=== PATIENT | female | born 1950 | race Caucasian/White ===

== ENCOUNTER → 2023-04-30 13:40 | Outpatient (BNVA) | payer MEDICARE, SELFPAY | PROVIDERS: PCP Nurse Practitioner Family; Visit Provider Nurse Practitioner Family | DX: E53.8 Deficiency of other specified B group vitamins (principal); I10 Essential (primary) hypertension; E55.9 Vitamin D deficiency, unspecified | CPT/HCPCS: 80053; 80061; 82306; 82607; 84443; 85025 ==

== ENCOUNTER 2023-05-28 14:54 | Outpatient (CLI) | payer MEDICARE, SELFPAY ==
--- NOTE | 2023-05-28 15:00 | US_ITS ---
WS: [id number] DIAGNOSTIC BILATERAL DIGITAL BREAST TOMOSYNTHESIS MAMMOGRAPHY WITH CAD Bilateral breast ultrasound, limited HISTORY: Breast lumps. History of ovarian cancer. COMPARISON: None available. TECHNIQUE: Bilateral craniocaudad, mediolateral oblique, and mediolateral views are submitted with to mosynthesis and SM. Spot compression bilateral CC. Computer aided detection utilized. Breast composition: There are scattered areas of fibroglandular density. High density lobulated mass measuring 2.5 cm posterior 9:00 RIGHT breast. Additional slightly lobulated 1.1 cm mass 12:00 mid dep th. There is an incompletely visualized 4.0 cm mass against the posterior LEFT chest wall. This is a very high density mass. Bilateral breast ultrasound, limited. RIGHT breast: Hypoechoic lobulated soft tissue mass with increased vascularity at 9:00, 6 cm from the nipple. Mass measures 1.7 x 2.3 x 2.0 cm. There is an additional hypoechoic mass at 12:00, 4 cm from the nipple measuring 1.0 x 0.4 x 0.9 cm. LEFT breast: Very large hypoechoic mass with lobulated margins with increased vascularity at 6:00, 10 cm from the nipple. Mass measures 3.7 x 3.1 x 4.5 cm. Normal axillary lymph nodes. IMPRESSION: US/US breast BI limited* [id number] BI-RADS: 5-Highly Suggestive of Malignancy FOLLOW UP: Biopsy Recommended 1. Bilateral suspicious breast masses for neoplasm. With history of ovarian car cinoma these may very well be metastatic sites within each breast. Otherwise bi lateral primary breast neoplasm should be considered. There are no prior studie s for comparison. 2. Ultrasound-guided biopsy can be performed of the largest mass within each br east.
--- NOTE | 2023-05-28 15:05 | MM_ITS ---
WS: [id number] DIAGNOSTIC BILATERAL DIGITAL BREAST TOMOSYNTHESIS MAMMOGRAPHY WITH CAD Bilateral breast ultrasound, limited HISTORY: Breast lumps. History of ovarian cancer. COMPARISON: None available. TECHNIQUE: Bilateral craniocaudad, mediolateral oblique, and mediolateral views are submitted with to mosynthcamille and SM. Spot compression bilateral CC. Computer aided detection utilized. Breast composition: There are scattered areas of fibroglandular density. High density lobulated mass measuring 2.5 cm posterior 9:00 RIGHT breast. Additional slightly lobulated 1.1 cm mass 12:00 mid dep th. There is an incompletely visualized 4.0 cm mass against the posterior LEFT chest wall. This is a very high density mass. Bilateral breast ultrasound, limited. RIGHT breast: Hypoechoic lobulated soft tissue mass with increased vascularity at 9:00, 6 cm from the nipple. Mass measures 1.7 x 2.3 x 2.0 cm. There is an additional hypoechoic mass at 12:00, 4 cm from the nipple measuring 1.0 x 0.4 x 0.9 cm. LEFT breast: Very large hypoechoic mass with lobulated margins with increased vascularity at 6:00, 10 cm from the nipple. Mass measures 3.7 x 3.1 x 4.5 cm. Normal axillary lymph nodes. IMPRESSION: MM/[place] [id number] BI-RADS: 5-Highly Suggestive of Malignancy FOLLOW UP: Biopsy Recommended 1. Bilateral suspicious breast masses for neoplasm. With history of ovarian car cinoma these may very well be metastatic sites within each breast. Otherwise bi lateral primary breast neoplasm should be considered. There are no prior studie s for comparison. 2. Ultrasound-guided biopsy can be performed of the largest mass within each br east.
== END 2023-05-28 14:55 | disposition home or self-care (01) ==
LOC: RAD 14:54
PROVIDERS: PCP Nurse Practitioner Family; Visit Provider Nurse Practitioner Family
DX: N63.15 Unspecified lump in the right breast, overlapping quadrants (principal); N64.59 Other signs and symptoms in breast; N63.25 Unspecified lump in the left breast, overlapping quadrants; Z85.43 Personal history of malignant neoplasm of ovary
CPT/HCPCS: 76642; 77062; 77066; G0279

== ENCOUNTER → 2023-06-19 14:32 | Outpatient (BNVA) | payer MEDICARE, SELFPAY | PROVIDERS: PCP Nurse Practitioner Family; Referring Provider Nurse Practitioner Family; Visit Provider Surgery | DX: N63.10 Unspecified lump in the right breast, unspecified quadrant (principal); N63.20 Unspecified lump in the left breast, unspecified quadrant | CPT/HCPCS: 99204 ==

== ENCOUNTER 2023-06-26 10:20 | Outpatient (CLI) | payer MEDICARE, SELFPAY ==
--- NOTE | 2023-06-26 10:15 | US_ITS ---
WS: [id number] ULTRASOUND SOFT TISSUES RIGHT lateral chest wall. HISTORY: chest wall mass COMPARISON: None available. TECHNIQUE: 2-D and color Doppler imaging is submitted. Ultrasound is directed over the RIGHT lateral chest wall at the area of the palpable mass. There is a hypoechoic lobulated mass with mild increased vascularity over the lateral chest. Mass measures 4.0 x 3.2 x 2.4 cm. IMPRESSION: Soft tissue mass with increased vascularity along the RIGHT lateral chest wall corresponding to the p alpable mass. This is most consistent with a metastatic soft tissue nodule. Please note there was an additional nodule adjacent to the RIGHT scapula. Due to multiplicity and history of ovarian carcinom a metastatic disease should be considered.
--- NOTE | 2023-06-26 10:45 | US_ITS ---
WS: [id number] ULTRASOUND SOFT TISSUES soft tissue mass adjacent to the LEFT scapula. HISTORY: back mass COMPARISON: None available. TECHNIQUE: 2-D and color Doppler imaging is submitted. There is a hypoechoic mass in the soft tissues adjacent to the LEFT scapula with mild peripheral incr eased vascularity. Margins are indistinct. This mass measures 1.4 x 1.5 x 1.5 cm. IMPRESSION: 1. Soft tissue mass adjacent the LEFT scapula. Differential includes metastatic disease. Patient has a history of ovarian carcinoma. Additional etiologies and consider are soft tissue sarcoma and elast ofibroma. 2. Soft tissue biopsy may be necessary to confirm diagnosis.
--- NOTE | 2023-06-26 13:15 | US_ITS ---
WS: [id number] ULTRASOUND-GUIDED RIGHT BREAST BIOPSY CLINICAL INFORMATION: right breast mass FINDINGS: The procedure including risks, benefits, and complications were discussed with the patient who agreed to proceed. Using sterile technique patient was prepped and draped in the usual sterile fashion. Aft er 1% lidocaine utilizing real-time ultrasound guidance 5 14-gauge cores were obtained of the RIGHT b reast lesion at the 9 o'clock position 6 cm from the nipple. Subsequently a titanium clip was placed in the biopsy cavity. No immediate complications. Pathology demonstrates A) Right breast, needle core biopsy: 1. 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 2. Clinical correlation is essential. IMPRESSION: 1. Uncomplicated ultrasound-guided RIGHT breast biopsy. 2. The pathology demonstrates metastatic high-grade carcinoma with biomarker findings consistent wit h small cell carcinoma lung primary 3. Recommend breast surgery and oncology consultation US/[place] [id number] BI-RADS: 6-Known Biopsy-Proven Malignancy FOLLOW UP: See Report
--- NOTE | 2023-06-26 14:45 | US_ITS ---
WS: [id number] ULTRASOUND-GUIDED LEFT BREAST BIOPSY CLINICAL INFORMATION: mass of both breast FINDINGS: The procedure including risks, benefits, and complications were discussed with the patient who agreed to proceed. Using sterile technique patient was prepped and draped in the usual sterile fashion. Aft er 1% lidocaine utilizing real-time ultrasound guidance 5 14-gauge cores were obtained of the LEFT br east lesion at the 6 o'clock position 10 cm from the nipple. Subsequently a titanium clip was placed in the biopsy cavity. No immediate complications. Pathology demonstrates B) Left breast, needle core biopsy: 1. 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 2. Clinical correlation is essential. IMPRESSION: 1. Uncomplicated ultrasound-guided LEFT breast biopsy. 2. The pathology demonstrates metastatic high-grade carcinoma with biomarker findings consistent wit h small cell carcinoma lung primary. 3. Recommend breast surgery and oncology consultation. US/[place] [id number] BI-RADS: 6-Known Biopsy-Proven Malignancy FOLLOW UP: See Report
== END 2023-06-26 10:21 | disposition home or self-care (01) ==
PROVIDERS: PCP Nurse Practitioner Family; Visit Provider Surgery
DX: C79.81 Secondary malignant neoplasm of breast (principal); C34.90 Malignant neoplasm of unspecified part of unspecified bronchus or lung; N63.21 Unspecified lump in the left breast, upper outer quadrant; N63.11 Unspecified lump in the right breast, upper outer quadrant; R22.2 Localized swelling, mass and lump, trunk; M79.89 Other specified soft tissue disorders; Z85.43 Personal history of malignant neoplasm of ovary
CPT/HCPCS: 19083; 19084; 76604; 76882; 88305; 88342

== ENCOUNTER 2023-07-08 13:22 | Emergency (ER) | payer MEDICARE, SELFPAY ==
[2023-07-08 13:36] VITALS: BP 157/94; PULSE 100; O2SAT 93; BMI 31.8
--- NOTE | 2023-07-08 13:43 | XRR_ITS ---
PROCEDURE INFORMATION: Exam: XR Chest Exam date and time: 07/08/2023 2:00 PM Age: 73 years old Clinical indication: Shortness of breath; Patient HX: HX of ovarian cancer; Additional info: SOB TECHNIQUE: Imaging protocol: Radiologic exam of the chest. Views: 1 view. COMPARISON: [place] chest [id number] 06/26/2023 11:08 AM FINDINGS: Lungs: See Heart/Mediastinum finding. Pleural spaces: See Heart/Mediastinum finding. Heart/Mediastinum: Moderate/marked cardiomegaly. This is accentuated by the AP positioning. Small right and questionable small left pleural effusion. Bibasilar atelectasis or infiltrates. No definite congestive heart failure or pulmonary edema. Bones/joints: Unremarkable. XR/XR chest 1V portable [id number] IMPRESSION: Cardiomegaly with bibasilar atelectasis or infiltrates.
--- NOTE | 2023-07-08 13:44 | ED_ITS ---
HPI - SOB/Dyspnea 2 General: Chief Complaint: Shortness of Breath/Dyspnea Stated Complaint: diff breathing Time Seen by Provider: 07/08/23 13:28 Source: patient and EMS Mode of arrival: EMS Limitations: no limitations History of Present Illness: HPI Narrative: 73-year-old female has a history of COPD also history of breast cancer with mets to her lungs she states she has had progressive worsening shortness of breath has been going on for months. States she has been told in the past that she needs to be on oxygen but is never been placed on oxygen she said that she just had increasing dyspnea and was wheezing today along with a cough denies any fever. Patient was hypoxic on room air EMS had placed her on 3 L. She denies any pain or fever. Associated symptoms: Deny abdominal pain, chest pain, fever(s), nausea or vomiting Review of Systems 2 Const: Denies: fever(s), chills, body aches or change in appetite ENMT: Denies: throat pain or dental pain Card: Denies: chest pain Resp: Reports: dyspnea, productive cough and wheezing GI: Denies: abdominal pain, nausea, vomiting or diarrhea Musc: Denies: neck pain or back pain Skin/Breast: Denies: rash Neuro: Denies: headache(s) PFSH ED 2 PFSH: Medical History Hx of ovarian cancer Heel spur Ovarian cancer Social History Smoking and tobacco/nicotine status: former use of tobacco/nicotine Physical Exam 2 Const: COMMON NORMALS: patient oriented x3 GENERAL APPEARANCE: ill appearing HENMT: COMMON NORMALS: normocephalic and atraumatic HEAD & SCALP: n ormocephalic and atraumatic Neck/C-Spine: COMMON NORMALS: full ROM and supple Chest: COMMONS NORMALS: normal inspection of the chest Resp: COMMON NORMALS: No retractions AUSCULTATION: wheezes Cardio: COMMON NORMALS: regular rate, regular rhythm and No murmurs present (Cardio) RATE: regular rate RHYTHM: regular rhythm Extremity: COMMON NORMALS: normal to inspection and full ROM Neuro: COMMON NORMALS: patient oriented x3, moves all extremities and no focal motor deficits Psych: COMMON NORMALS: mental status grossly normal, Normal thought process present and cooperative THOUGHT PROCESS: Normal thought process present Skin: COMMON NORMALS: no rashes or lesions noted and no wounds GENERAL SKIN EXAM: no rashes or lesions noted Course 2 Vital Signs: Vital signs: Vital Signs Pulse Rate 91 07/08/23 14:09 Respiratory Rate 24 H 07/08/23 14:09 Blood Pressure 147/93 07/08/23 14:40 Pulse Oximetry 84 L 07/08/23 14:58 Oxygen Delivery Me thod Nasal Cannula 07/08/23 14:40 Oxygen Flow Rate 4 07/08/23 14:58 MDM - SOB/Dyspnea Medical Decision Making Patient presents with a large mediastinal mass I informed her of the findings and the gravity of the findings. Patient is requiring 4 L of oxygen here we will get her home oxygen prescribe her pain meds for home I did discuss treatment options with her and informed her that is quite large seems to be involving the bronchovascular. She states she would like to go home at this time and think about it she states she does not want any treatment and knows this is likely terminal I did offer hospice she states that she will consider hospice treatment but wants to talk to her about it first she stable for discharge Medical Records I reviewed the patient's medical records. Lab Data I reviewed the patient's lab results. 07/08/23 13:52 07/08/23 13:52 Labs/Radiology: Radiology Impressions Chest X-Ray 07/08/23 13:43 IMPRESSION: Cardiomegaly with bibasilar atelectasis or infiltrates. Laboratory Results WBC 10.14 10^3/uL (3.29-11.43) 07/08/23 13:52 RBC 4.98 10^6/uL (3.85-5.65) 07/08/23 13:52 Hgb 13.80 g/dL (11.27-16.99) 07/08/23 13:52 Hct 43.6 % (36-47) 07/08/23 13:52 MCV 87.6 fl (85-98) 07/08/23 13:52 MCH 27.7 pg (27-33) 07/08/23 13:52 MCHC 31.7 g/dL (30-55) 07/08/23 13:52 RDW 13.9 % (12.1-15.1) 07/08/23 13:52 Plt Count 353 10^3/cmm (157-399) 07/08/23 13:52 MPV 8.6 fL (7.4-10.4) 07/08/23 13:52 Neut % (Auto) 86.5 % 07/08/23 13:52 Lymph % (Auto) 5.3 % 07/08/23 13:52 [place] % (Auto) 7.2 % 07/08/23 13:52 Eos % (Auto) 0.1 % 07/08/23 13:52 Baso % (Auto) 0.5 % 07/08/23 13:52 Neut # (Auto) 8.77 10^3/uL (1.8-7.7) H 07/08/23 13:52 Lymph # (Auto) 0.5 10^3/uL (0.8-4.8) L 07/08/23 13:52 [place] # (Auto) 0.7 10^3/uL (0.2-0.9) 07/08/23 13:52 Eos # (Auto) 0.0 10^3/uL (0.0-0.8) 07/08/23 13:52 Baso # (Auto) 0.1 10^3/uL (0.0-0.1) 07/08/23 13:52 Nucleated RBC % (auto) 0 % 07/08/23 13:52 Nucleated RBCs # 0.0 /100WBC 07/08/23 13:52 Sodium 132 mmol/L (136-145) L 07/08/23 13:52 Potassium 3.9 mmol/L (3.5-5.1) 07/08/23 13:52 Chloride 91 mmol/L (98-107) L 07/08/23 13:52 Carbon Dioxide 30 mmol/L (22-29) H 07/08/23 13:52 Anion Gap 14.9 (5-19) 07/08/23 13:52 BUN 14 mg/dL (8-23) 07/08/23 13:52 Creatinine 0.7 mg/dL (0.5-0.9) 07/08/23 13:52 GFR Calculation Not Reportable 07/08/23 13:52 Glucose 100 mg/dL (65-115) 07/08/23 13:52 Calculated Osmolality 275 mOsm/kg (285-295) L 07/08/23 13:52 Calcium 9.6 mg/dL (8.5-10.5) 07/08/23 13:52 Total Bilirubin 0.3 mg/dL (0.15-1.2) 07/08/23 13:52 AST 17 U/L (0-32) 07/08/23 13:52 ALT 12 U/L (0-33) 07/08/23 13:52 Alkaline Phosphatase 80 U/L (35-105) 07/08/23 13:52 NT-Pro-B Natriuret Pep 896 pg/mL (0-125) H 07/08/23 13:52 Total Protein 6.2 g/dL (6.6-8.7) L 07/08/23 13:52 Albumin 3.2 g/dL (3.5-5.2) L 07/08/23 13:52 Globulin 3.0 g/dL (1.3-4.6) 07/08/23 13:52 All radiology interpretation(s) finalized by discharge Discharge Plan Discharge Patient Disposition: Home Clinical Impression: Acute dyspnea, Mediastinal mass Condition: Stable Prescriptions: New hydrocodone-acetaminophen 5-325 mg tablet 1 tab PO Q6H PRN (Reason: pain) Qty: 14 0RF ondansetron 4 mg tablet,disintegrating 4 mg PO Q6H PRN (Reason: nausea and vomiting) Qty: 14 0RF No Action cholecalciferol (vitamin D3) 125 mcg (5,000 unit) capsule 125 mcg PO DAILY albuterol sulfate 90 mcg/actuation HFA aerosol inhaler 2 puff inhalation Q4H PRN (Reason: shortness of breath or wheezing) Qty: 8.5 2RF Discharge Orders: Discharge ED (Routine); Ordered 07/08/23 Ordered By: Henrietta Flynn Other Ambulatory Orders: DME: Oxygen (Order) Location: None Selected Ordered By: Henrietta Flynn Referrals: Marisela Clinton NP [Primary Care Provider] - 4-7 days Discharge Diet: Advance as tolerated Discharge Activity: Resume usual activity Patient Instructions: Dyspnea (ED) Coding Level of Care Code ED Optical Laboratory Technician for Dillon Azul
[2023-07-08 13:59] LABS: Basophils # 0.1 10^3/uL (0.0-0.1); Basophils % 0.5 %; Eosinophils % 0.1 %; Hematocrit 43.6 % (36-47); Lymphocytes # 0.5 10^3/uL (0.8-4.8); Lymphocytes % 5.3 %; Mean Corpuscular HGB Conc 31.7 g/dL (30-55); Mean Corpuscular Hemoglobin 27.7 pg (27-33); Mean Corpuscular Volume 87.6 fl (85-98); Mean Platelet Volume 8.6 fL (7.4-10.4); Monocytes # 0.7 10^3/uL (0.2-0.9); Monocytes % 7.2 %; Neutrophils # 8.77 10^3/uL (1.8-7.7); Neutrophils % 86.5 %; Nucleated Red Blood Cells % 0 %; Platelet Count 353 10^3/cmm (157-399); Red Blood Count 4.98 10^6/uL (3.85-5.65); Red Cell Distribution Width 13.9 % (12.1-15.1); White Blood Count 10.14 10^3/uL (3.29-11.43)
[2023-07-08] MEDS: albuterol 2.5 mg/3 mL Neb INHALATION (14:06)
[2023-07-08] MEDS: ipratropium-albuterol 3 mL Neb INHALATION (14:06)
[2023-07-08 14:09] VITALS: PULSE 91; RESP 24; O2SAT 92
[2023-07-08 14:29] LABS: Alanine Aminotransferase 12 U/L (0-33); Albumin Level 3.2 g/dL (3.5-5.2); Alkaline Phosphatase 80 U/L (35-105); Anion Gap 14.9 (5-19); Aspartate Amino Transferase 17 U/L (0-32); Blood Urea Nitrogen 14 mg/dL (8-23); Calcium 9.6 mg/dL (8.5-10.5); Carbon Dioxide 30 mmol/L (22-29); Chloride 91 mmol/L (98-107); Glucose 100 mg/dL (65-115); NT Pro B Type Natriuretic Pept 896 pg/mL (0-125); Osmolality Calculated 275 mOsm/kg (285-295); Potassium 3.9 mmol/L (3.5-5.1); Sodium 132 mmol/L (136-145); Total Bilirubin 0.3 mg/dL (0.15-1.2); Total Protein 6.2 g/dL (6.6-8.7)
[2023-07-08] MEDS: methylPREDNISolone sod succ 125 mg/2 mL INJ IV (14:31)
--- NOTE | 2023-07-08 14:33 | CT_ITS ---
WS: [id number] CT CHEST ANGIOGRAPHY WITH REFORMATS HISTORY: sob TECHNIQUE: Contiguous axial images are obtained through the chest during arterial injection of intrav enous contrast. Images are reconstructed to evaluate the pulmonary arteries. MIP imaging also reviewe d. All CT scans at [facility] use at least one of these dose optimization techniques: automat ed exposure control; mA and/or kV adjustment per patient size (includes targeted exams where dose is matched to clinical indication); or iterative reconstruction. CONTRAST: Omnipaque 350; 100 mL IV. DLP: 486.65 mGy.cm COMPARISON: Chest radiograph 07/08/2023 Good opacification of the pulmonary artery. Main pulmonary artery is slightly dilated. The RIGHT pulm onary artery is being displaced and encased by soft tissue tumor. Arteries being displaced anteriorly with moderate narrowing of the lumen. There is continued tumor encasing the RIGHT lower lobe broncho vascular structures with extension into the RIGHT lower lobe. Normal size aorta. Small RIGHT pleural effusion with adjacent RIGHT lower lobe atelectasis. There is a large pericardial effusion. The soft tissue tumor centered within the mediastinum and enca sing the pulmonary artery and the central bronchus is inseparable from the pericardium with mass effe ct upon the heart. It is difficult to measure the exact tumor size which is confluent, measures at le ast 12.9 x 9.3 x 10.0 cm. This is the main1 tumor in the central mediastinum. There is additional sig nificant mediastinal and hilar lymphadenopathy. Patient has multiple subcutaneous soft tissue masses throughout the thorax. Largest masses along the anterior LEFT chest wall measuring 5.4 x 4.6 cm. Lucretia ent has known breast masses which have been recently biopsied. LEFT adrenal mass measures 2.1 x 2.4 cm. Hounsfield units are low. Focal low-attenuation nodule in th e LEFT lobe of the liver. Retrocrural lymph nodes. No destructive bone lesions. IMPRESSION: 1. No central pulmonary embolism. 2. There is a large confluent soft tissue mass centered in the central mediastinum and hilar region with encasement of the bronchovascular structures and narrowing and displacement of the RIGHT pulmona ry artery and bronchial tree. This is probably confluent lymphadenopathy. This mass extends contiguou sly into the RIGHT lower lobe. 3. Patient has known subcutaneous soft tissue masses which have been previously described. 4. Retrocrural lymph nodes. 5. LEFT adrenal mass. Probably an adenoma. 6. Large pericardial effusion. Suspicious for pericardial involvement by tumor extension from the me diastinum. Notified Henrietta Flynn MD at 07/08/2023 3:48 PM.
[2023-07-08 14:40] VITALS: BP 147/93; O2SAT 90
[2023-07-08 14:58] VITALS: O2SAT 84; O2SAT 92
[2023-07-08] MEDS: iohexol 350 mg/mL 500 mL Btl (per mL) IV (15:22)
== END 2023-07-08 16:54 | disposition home or self-care (01) ==
PROVIDERS: Emergency Provider Emergency Medicine; PCP Nurse Practitioner Family
DX: R06.00 Dyspnea, unspecified (principal); J98.59 Other diseases of mediastinum, not elsewhere classified; Z87.891 Personal history of nicotine dependence; Z85.43 Personal history of malignant neoplasm of ovary
CPT/HCPCS: 36415; 71045; 71275; 80053; 83880; 85025; 94640; 96374; 99285; J2930; J7613; Q9967